=== PATIENT | female | born 1995 | race African-American/Black ===

== ENCOUNTER 2019-07-17 10:11 | Emergency (ER) | payer OTHER, BC, SELFPAY ==
[2019-07-17 10:21] VITALS: BP 127/78; PULSE 88; RESP 16; TEMP 36.7; O2SAT 100
--- NOTE | 2019-07-17 10:21 | ED.URI ---
HPI - URI/Sore Throat General Chief Complaint: Upper Respiratory Infection Stated Complaint: Chills,Cough Time Seen by Provider: 07/17/19 10:21 History of Present Illness HPI Narrative: Patient is a 24-year-old female that presents the urgent care with complaints of congestion, cough, fever, chills, runny nose. Patient states that started yesterday and today she woke up with a sore throat and headache. Patient denies any use of [id number] medication for symptoms. Denies any known exposure to strep or flu. Did not get her flu vaccine. No other acute complaints. No acute distress noted. Patient read the plan of care. Related Data Allergies Allergy/AdvReac Type Severity Reaction Status Date / Time No Known Allergies Allergy Mild Unknown Uncoded 07/17/19 10:16 Review of Systems Review of Systems: Narrative: CONSTITUTIONAL: Reports a fever and chills EYES: Denies visual changes, redness, or discharge. ENT: Reports of rhinorrhea, congestion, sore throat CARDIOVASCULAR: Denies chest pain, palpitations, or edema. RESPIRATORY: Reports a mild nonproductive cough GASTROINTESTINAL: Denies abdominal pain, nausea, vomiting, or diarrhea. GENITOURINARY: Denies dysuria or hematuria. SKIN: Denies rash or itching. MUSCULOSKELETAL: Denies back pain, joint pain, or myalgia. NEUROLOGIC: Denies headache, numbness, or weakness. All other systems reviewed are negative, except as documented in HPI. PMFSH Social History Social History Gender identity (if verbalized by the patient): Male Comments At the time of my signature, I reviewed and agree with the nursing past medical, surgical, social, and family history. There is no relevant family history pertinent to the patient complaint. Exam Narrative: Exam Narrative: GENERAL: This is a well-nourished, well-developed patient, appears slightly fatigued HEAD: normocephalic, atraumatic. EYES: PERRL. Sclera clear/white. Vision is grossly intact. EARS: External ears normal, auditory canals clear and without drainage, TMs normal without perforation. Hearing grossly intact. NOSE: External nose normal with no obvious nasal discharge, mild bilateral erythemic nares with clear rhinorrhea. THROAT: Mucous membranes moist, mild erythema noted posterior oropharynx with moderate postnasal drainage NECK: Neck supple, non-tender without lymphadenopathy CARDIOVASCULAR: Regular rate and rhythm without murmurs, gallops, or rubs. RESPIRATORY: Clear to auscultation. Breath sounds equal bilaterally. No wheezes, rales, or rhonchi. SKIN: warm, intact with no suspicious lesions or rash, good texture and turgor. NEURO: awake, alert, and oriented to person, place and time. There were no obvious focal neurologic abnormalities. EXTREMITIES: No clubbing, cyanosis, or edema. Course Vital Signs Vital signs: Vital Signs Temperature 98.1 F 07/17/19 10:21 Pulse Rate 88 07/17/19 10:21 Respiratory Rate 16 07/17/19 10:21 Blood Pressure 127/78 07/17/19 10:21 Pulse Oximetry 100 07/17/19 10:21 Temperature 98.1 F 07/17/19 10:21 Pulse Rate 88 07/17/19 10:21 Respiratory Rate 16 07/17/19 10:21 Blood Pressure 127/78 07/17/19 10:21 Pulse Oximetry 100 07/17/19 10:21 Reviewed MDM - URI/Sore Throat MDM Narrative Medical decision making narrative: Reviewed lab results with the patient. She is aware that strep swab was negative. Educated her on culture we will call within 72 hours if culture is positive and antibiotics are necessary. Aware that flu swab was positive for influenza B. Advised her to use the coupon and take Xofluza as directed. Make sure to eat and drink with the medication. May need to check multiple pharmacies if your local pharmacy is out of the medication. Tamiflu is not a substitution for Xofluza. They are totally different medications with different side effects. Treat symptoms with [id number] medication such as Robitussin/Delsym for cough, Claritin for allergy-like sympto
== END 2019-07-17 10:45 | disposition home or self-care (01) ==
PROVIDERS: Emergency Provider Nurse Practitioner Family
DX: J10.1 Influenza due to other identified influenza virus with other respiratory manifestations (principal)
CPT/HCPCS: 87081; 87804; 87880; 99213; G0463